=== PATIENT | male | born 1960 | race Caucasian/White ===

== ENCOUNTER 2021-09-25 14:44 | Emergency (ER) | payer BC, SELFPAY ==
--- NOTE | ~2021-09-25 | CT_ITS ---
EXAMINATION: CT soft tissue neck w con DATE: 09/25/2021 16:26 INDICATION: TECHNIQUE: Computed tomography (CT) of the neck was performed with 75 mL Omnipaque-300 intravenous co ntrast. Automated exposure control and iterative reconstruction technique were employed. The dose-vic gth product was 709.01 mGy-cm. COMPARISON: None FINDINGS: The thyroid gland is unremarkable. The submandibular and parotid glands are symmetric. There is n o cervical lymphadenopathy. There are no masses identified. The superior mediastinum is unremarka ble. The airway is unremarkable. Parapharyngeal and pre-glottic fat planes are preserved. Domin ant left vertebral artery. Hypoplastic/occluded intradural segment of the right distal vertebral pratibha ry. Bilateral lens replacements. Visualized sinuses and mastoid air cells are well aerated. Apica l pleural scarring. There is cervical spondylosis. IMPRESSION: 1. No acute process detected in the neck. Reviewed, dictated and finalized at location K.
[2021-09-25 14:54] VITALS: BP 159/92; PULSE 106; RESP 18; TEMP 36.8; O2SAT 97
[2021-09-25 15:23] VITALS: BP 143/95; PULSE 93; RESP 17; O2SAT 97
[2021-09-25 15:40] LABS: Basophils Percent Auto 0.5 % (0.2-1.2); Eosinophils Absolute Auto 0.2 K/mm3 (0-0.3); Eosinophils Percent Auto 2.3 % (0-4.4); Hematocrit 42.3 % (42.0-52.0); Hemoglobin 13.8 g/dL (14.0-18.0); Immature Granulocyte Absolute 0.02 K/mm3 (0.00-0.031); Immature Granulocyte Percent A 0.3 % (0-0.5); Lymphocytes Percent Auto 20.8 % (18.3-44.2); Mean Corpuscular HGB Conc 32.6 g/dl (32-36); Mean Corpuscular Hemoglobin 31.7 pg (26-34); Mean Platelet Volume 8.9 fl (7.4-10.4); Monocytes Percent Auto 12.8 % (2.6-8.5); Neutrophils Absolute Auto 4.9 K/mm3 (1.3-6.7); Neutrophils Percent Auto 63.3 % (45.5-73.1); Platelet Count Result 218 k/mm3 (150-375); Red Blood Count 4.36 M/mm3 (4.6-6.20); Red Cell Distribution Width 12.7 % (11.5-14.5); White Blood Count 7.7 K/mm3 (4.5-10.0)
[2021-09-25 15:54] LABS: Anion Gap 6 mmol/L (8-16); Blood Urea Nitrogen 22 mg/dL (9-20); Calcium 8.6 mg/dL (8.4-10.2); Carbon Dioxide 27 mmol/L (22-30); Chloride 105 mmol/L (98-107); Estimated CRCL calculation 105 ml/min; Estimated Glomerular Filt Rate > 60; Glucose 92 mg/dL (65-110); Potassium 4.6 mmol/L (3.4-5.0); Sodium 138 mmol/L (137-145)
--- NOTE | 2021-09-25 16:11 | ED.GENADULT ---
HPI - General Adult General Chief complaint: Neck Pain/Injury Stated complaint: R sided numbness to neck x2 weeks Time Seen by Provider: 09/25/21 15:21 History of Present Illness HPI narrative: Patient is a 60 year-old male who presents to the ER with numbness to the right neck. Ongoing over the last 2 weeks. No known trauma. No pain in the neck. Started noticing some mild discomfort last couple days in the anterior right-sided neck and feels like there may be some swelling as well. No difficulty breathing or swallowing. No fevers or chills or sweats. No dizziness. Patient was unable to palpate any lymphadenopathy. Patient has history of cervical fusion. Denies extremity numbness or tingling or weakness. Related Data Home Medications Medication Instructions Recorded Confirmed atorvastatin 10 mg PO DAILY 09/25/21 lisinopril 5 mg PO DAILY 09/25/21 Allergies Allergy/AdvReac Type Severity Reaction Status Date / Time No Known Allergies Allergy Verified 09/25/21 15:20 Review of Systems Review of Systems: All systems reviewed & are unremarkable except as noted in HPI and below Constitutional: Constitutional: Denies chills, Denies fever(s) and Denies weakness ENT: Denies dysphagia Respiratory: Respiratory: Denies dyspnea Neurologic: Denies focal weakness and Reports numbness PMFSH Past Medical History Medical History (Updated 09/25/21 @ 16:51 by Lino Richards MD) BMI 32.0-32.9,adult BPH (benign prostatic hyperplasia) Dermatitis Elevated lipids Exposure to COVID-19 virus Surgical History Surgical History (Updated 09/25/21 @ 16:13 by Lino Richards MD) History of fusion of cervical spine Family History Family History Father Hypertension Mother Patient's mother is in good health Other Cerebrovascular accident Social History Social History Smoking status: Never smoker Second hand tobacco smoke exposure: No Alcohol intake: current Exam Narrative: GENERAL: Well-appearing, well-nourished, and in no acute distress. HEAD: Normocephalic, atraumatic. ENT: Mucous membranes moist. Normal-appearing posterior oropharynx. TMs normal bilaterally. NECK: Supple. Lymphadenopathy. No palpable bruit. Symmetric in appearance. CHEST: Clear to auscultation. No respiratory distress. HEART: Regular rate and rhythm. Normal peripheral pulses. NEURO: Alert and oriented x3. PSYCH: Normal mood and affect. Course Course Emergency Course: Patient informed of results. He has been given a disc with a copy of his images. Declines Medrol Dosepak. Discharge home. Vital Signs Vital signs: Vital Signs Temperature 98.3 F 09/25/21 14:54 Pulse Rate 106 H 09/25/21 14:54 Respiratory Rate 18 09/25/21 14:54 Blood Pressure 159/92 H 09/25/21 14:54 Pulse Oximetry 97 09/25/21 14:54 Temperature 98.3 F 09/25/21 14:54 Pulse Rate 94 09/25/21 16:48 Respiratory Rate 20 09/25/21 16:48 Blood Pressure 141/91 H 09/25/21 16:48 Pulse Oximetry 96 09/25/21 16:48 Medical Decision Making Vital Signs Vital Signs: Vital Signs Temperature 98.3 F 09/25/21 14:54 Pulse Rate 106 H 09/25/21 14:54 Respiratory Rate 18 09/25/21 14:54 Blood Pressure 159/92 H 09/25/21 14:54 Pulse Oximetry 97 09/25/21 14:54 Temperature 98.3 F 09/25/21 14:54 Pulse Rate 94 09/25/21 16:48 Respiratory Rate 20 09/25/21 16:48 Blood Pressure 141/91 H 09/25/21 16:48 Pulse Oximetry 96 09/25/21 16:48 Lab Data Result diagrams: 09/25/21 15:36 09/25/21 15:36 Labs: Lab Results 09/25/21 09/25/21 Range/Units 15:36 15:36 WBC 7.7 (4.5-10.0) K/mm3 RBC 4.36 L (4.6-6.20) M/mm3 Hgb 13.8 L (14.0-18.0) g/dL Hct 42.3 (42.0-52.0) % MCV 97.0 (80-100) fl MCH 31.7 (26-34) pg MCHC 32.6 (32-36) g/dl RDW 12.7 (11.5-1
[2021-09-25 16:48] VITALS: BP 141/91; PULSE 94; RESP 20; O2SAT 96
== END 2021-09-25 17:15 | disposition home or self-care (01) ==
PROVIDERS: Emergency Provider Emergency Medicine; PCP Family Medicine
DX: M54.12 Radiculopathy, cervical region (principal); N40.0 Benign prostatic hyperplasia without lower urinary tract symptoms; Z98.1 Arthrodesis status
CPT/HCPCS: 36415; 70491; 80048; 85025; 99284; Q9967

== ENCOUNTER 2024-02-12 08:25 | Outpatient (CLI) | payer BC, SELFPAY | END 2024-02-12 08:26 | disposition home or self-care (01) | PROVIDERS: PCP Family Medicine; Visit Provider Family Medicine | DX: H93.19 Tinnitus, unspecified ear (principal); H91.90 Unspecified hearing loss, unspecified ear | CPT/HCPCS: 92557; 92567 ==

== ENCOUNTER 2024-02-13 09:36 | Outpatient (CLI) | payer BC, SELFPAY ==
--- NOTE | 2024-02-13 09:42 | EST_ITS ---
Patient Info Name: Sal Craig Age: 63 years : 1960 Gender: Male Ht: 75 in Wt: 255 lbs BSA: 2.50 m2 HR: 96 bpm BP: 159 / 83 mmHg Exam Date: 02/13/2024 10:02 AM Exam Location: [facility] Lab Patient Status: Outpatient Admit Date: 02/13/2024 Staff Ordering Physician: Holger Carvajal MD Attending Provider: Holger Carvajal MD Exercise Technologist: Letty Karimi [facility] Exercise Physician: Sandor Morales DO Exam Type: CA stress test treadmill Study Info A treadmill exercise stress test was performed. Summary 1. 1. Negative Manjit exercise stress test for ischemic ST changes by ECG criteria. 2. 2. Reduced functional capacity, achieving 8 METs of workload, limited by reaching maximum heart rate. 3. 3. Baseline hypertension. 4. 4. Appropriate HR response to exercise. 5. 5. Appropriate HR recovery at 1 minute post exercise. 6. 6. No imaging with stress testing. 7. 7. Patient informed of the above results. Protocol: Manjit Stress ECG Details Stage: REST Duration (min): 1 min : 59 sec Speed (mph): 0.0 Grade (%): 0 HR (bpm): 96 SBP (mmHg): 159 DBP (mmHg): 83 METS: --- Stage: REST Duration (min): 5 min : 42 sec Speed (mph): 0.0 Grade (%): 0 HR (bpm): 103 SBP (mmHg): 159 DBP (mmHg): 83 METS: --- Stage: STAGE 1 Duration (min): 1 min : 0 sec Speed (mph): 1.7 Grade (%): 10 HR (bpm): 116 SBP (mmHg): 159 DBP (mmHg): 83 METS: --- Stage: STAGE 1 Duration (min): 2 min : 0 sec Speed (mph): 1.7 Grade (%): 10 HR (bpm): 128 SBP (mmHg): 159 DBP (mmHg): 83 METS: --- Stage: STAGE 1 Duration (min): 3 min : 0 sec Speed (mph): 1.7 Grade (%): 10 HR (bpm): 132 SBP (mmHg): 181 DBP (mmHg): 80 METS: --- Stage: STAGE 2 Duration (min): 1 min : 0 sec Speed (mph): 2.5 Grade (%): 12 HR (bpm): 142 SBP (mmHg): 181 DBP (mmHg): 80 METS: --- Stage: STAGE 2 Duration (min): 2 min : 0 sec Speed (mph): 2.5 Grade (%): 12 HR (bpm): 149 SBP (mmHg): 197 DBP (mmHg): 80 METS: --- Stage: STAGE 2 Duration (min): 3 min : 0 sec Speed (mph): 2.5 Grade (%): 12 HR (bpm): 153 SBP (mmHg): 197 DBP (mmHg): 80 METS: --- Stage: STAGE 3 Duration (min): 0 min : 44 sec Speed (mph): 3.4 Grade (%): 14 HR (bpm): 156 SBP (mmHg): 197 DBP (mmHg): 80 METS: --- Stage: RECOVERY Duration (min): 0 min : 15 sec Speed (mph): 1.5 Grade (%): 0 HR (bpm): 158 SBP (mmHg): 171 DBP (mmHg): 76 METS: --- Stage: RECOVERY Duration (min): 1 min : 15 sec Speed (mph): 0.0 Grade (%): 0 HR (bpm): 135 SBP (mmHg): 171 DBP (mmHg): 76 METS: --- Stage: RECOVERY Duration (min): 2 min : 15 sec Speed (mph): 0.0 Grade (%): 0 HR (bpm): 116 SBP (mmHg): 171 DBP (mmHg): 76 METS: --- Stage: RECOVERY Duration (min): 3 min : 15 sec Speed (mph): 0.0 Grade (%): 0 HR (bpm): 110 SBP (mmHg): 207 DBP (mmHg):
== END 2024-02-13 09:37 | disposition home or self-care (01) ==
LOC: ANHCARD 09:38
PROVIDERS: PCP Family Medicine; Visit Provider Family Medicine
DX: R00.0 Tachycardia, unspecified (principal)
CPT/HCPCS: 93017

== ENCOUNTER 2024-07-21 00:06 | Day surgery (SDC) | payer BC, SELFPAY ==
[2024-07-14 08:41] VITALS: BMI 31.3
--- OUTSIDE RECORDS SUMMARY | 2024-07-21 00:10 | XMS_ITS | Continuity of Care Document ---
Author Organization [facility] Address [address] [place] [address] Phone Care Team Providers Care Roll Cleaner Name Role Phone Jonn PT,MPT,ATC, Tyler Unavailable Unavai lable Procedures Procedure Date Progress Note Neuromuscular Re-Ed Therapeutic Activities Manual Therapy Therapeutic Activities Neuromuscular Re-Ed Manual Therapy Neuromuscular Re-Ed Therapeutic Activities Manual Therapy Therapeutic Activities Neuromuscular Re-Ed Manual Therapy Therapeutic Exercise Neuromuscular Re-Ed Therapeutic Activities PT Evaluation Moderate Complexity Manual Therapy Advance Directives Directive Yes / No Effective Date File Name No Information Encounters Encounter Description Practice Location Reason(s) For Visit Diagnoses Date Provider Providers Copied on Encounter [facility], [place], [place], [id number], tel:[phone] [place] No Information 1 Jonn Driscoll [place], [place]. [facility], [place], [place], [id number], tel:[phone] [place] No Information 1 NICK Guy, [place]. [facility], [address], [place], [place], [id number], tel:[phone] [place] No Information 1 NICK Guy, . [facility], [address], [place], [place], [id number], tel:[phone] [place] No Information 1 NICK Guy, . [facility], [address], [place], [place], [id number], tel:[phone] [place] No Information 1 Jonn Driscoll [place], . Family History Family Member Type Diagnosis Age At Onset No Information Payers Payer name Insurance type Covered alliance party ID Authoreankaron clark(s) [facility] [id number] Social History Type Description Quantity Date Captured Comments Sex Male Smoking Status No Information Chief Complaint And Reason For Visit No Information Reason For Referral Reason For Referral No Information History Of Present Illness Encounter Date Complaint History Of Prese nt Illness No Information Functional Status Date Functional Assessmen t No Information Instructions Date Instruction Additional Infor jose Giving encouragement to exercise Related to Overweight Giving encouragement to exercise Related to Overweight Assessments Type Assessment Date No Information Patient Care Teams Name Effective Dates (start - stop) Status Members No Information
--- OUTSIDE RECORDS SUMMARY | 2024-07-21 00:10 | XMS_ITS | Continuity of Care Document ---
Author Organization [facility] Address [address] [place] [address] Phone Care Team Providers Care Gizzard Puller Name Role Phone Johnson OD, Saad Unavailable Unavailable Advance Directives Directive Yes / No Effective Date File Name No Information Encounters Encounter Description Practice Location Reason(s) For Visit Diagnoses Date Provider Providers Copied on Encounter [facility], [address], [place], [place], [id number], [place] tel:[phone] [facility] No Information 4-200 0 Johnson OD Saad. [address], [place], [address], [place]. tel:[phone] Family History Family Member Type Diagnosis Age At Onset No Information Payers Payer name Insurance type Covered alliance party ID Authoriza tion(s) No Information Social History Type Description Quantity Date Captured Comments Sex Male Smoking Status No Information Chief Complaint And Reason For Visit No Information Reason For Referral Reason For Referral No Information History Of Present Illness Encounter Date Complaint History Of Prese nt Illness No Information Functional Status Date Functional Assessmen t No Information Instructions Date Instruction Additional Infor mation No Information Assessments Type Assessment Date No Information Patient Care Teams Name Effective Dates (start - stop) Status Members No Information
--- OUTSIDE RECORDS SUMMARY | 2024-07-21 00:10 | XMS_ITS | Clinical Summary ---
Author Organization [facility] Address [address] [place] [address] Care Team Providers Care Wool Shearing Supervisor Name Role Phone Ivone Ospina NP Primary Care Provider [phone] Holger Carvajal MD Unavailable [phone] Allergies No known active allergies Medications atorvastatin 20 MG tablet Take 20 mg by mouth daily. 0 Active lisinopril 10 MG tablet Take 10 mg by mouth daily. 0 Active aspirin EC 81 MG tablet Take 81 mg by mouth daily. Active tadalafil 5 MG tablet Take 5 mg by mouth daily as needed for Erectile Dysfunction. Active clobetasol 0.05 % cream Apply 1 Application topically 2 (two) times daily. 0 Active Clarithromycin (BIAXIN OR) Take 1 tablet by mouth 3 (three) times daily as needed. Active HYDROcodone-sharri taminophen 5-325 MG tabletIndicatio ns:Acute Pain < 7 Day Supply Take 1 tablet by mouth every 6 (six) hours as needed for Pain. Indications: Acute Pain < 7 Day Supply 20 tablet 0 Active Active Problems Problem Noted Date Diagnosed Date Rupture of left distal biceps tendon, initial en counter 03/15/2020 Family History Medical History Relation Comments Sudden Brother Autoimmune Disease Father Kidney Disease Father sepsis Father COPD Mother No Known Problems Sister 1 No Known Problems Sister 2 Relation Status Comments Brother Father Mother Sister 1 Alive Sister 2 Alive Social History Tobacco Use Types Packs/Day Years Used Date Smoking Tobacco: Never Smokeless Tobacco: Never Alcohol Use Standard Drinks/Week Comments Yes 0 (1 standard drink = 0.6 oz pur e alcohol) weekly Sex and Gender Information Value Date Recorded Sex Assigned at Not on file Legal Sex Male 5:43 PM CONTACT WORKER Gender Identity Not on file Sexual Orientation Not on file Last Filed Vital Signs Vital Sign Reading Time Taken Comments Blood Pressure 135/79 03/18/2020 10:00 AM CONTACT WORKER Pulse 69 03/18/2020 10:00 AM CONTACT WORKER Temperature 36.1 C (96.9 F) 03/18/2020 10:00 AM CONTACT WORKER Respiratory Rate 16 03/18/2020 10:00 AM CONTACT WORKER Oxygen Saturation 95% 03/18/2020 9:45 AM CONTACT WORKER Inhaled Oxygen Concentration - - Weight 113.4 kg (250 lb) 06/03/2020 4:35 PM CONTACT WORKER Height 190.5 cm (6' 3 ) 06/03/2020 4:35 PM CONTACT WORKER Body Mass Index 31.25 06/03/2020 4:35 PM CONTACT WORKER Plan of Treatment Health Maintenance Due Date Last Done Comments Colorectal Cancer Screening Colonoscopy (10 Years) 1960 Annual Physical 10/16/1963 Hepatitis C 1978 DTaP, Tdap and Td Vaccines ( 1 - Tdap) 10/16/1979 Zoster Vaccines (1 of 2) 2010 COVID-19 Vaccine ( - 2023-2 5 season) 2024 Influenza Adult (#1) 2024 RSV Immunization or 60+ Years (1 - 1-dose 75+ series) 10/16/2035 Meningococcal B Vaccine Aged Out No l onger eligible based on patient's age to complete this topic Meningococcal Vaccine Aged Out No derian domingo eligible based on patient's age to complete this topic Pneumococcal Vaccine: Pediat rics (0 to 5 Years) and At-Risk Patients (6 to 64 Years) Aged Out No longer eligible b ased on patient's age to complete this topic RSV Immunizations Under 20 Months Aged Out No longer eligible based on patient's age to complete this topic Medical Devices Implanted Type Area Nurse Sane Device Identifier Shelf Expiration Date Model / Serial / Lot Implant Delivery System, Biocomposite Distal Biceps Repair Implanted:Qty: 1 on 03/18/2020 by Noah Danielson MD at [facility] Left: Arm 11/10/2021 [id number] / / [id number] Insurance [facility] Care Teams Wool Shearing Supervisor Relationship Specialty Start Date End Date Ivone Ospina AMORTIZATION CLERK [address] [place] [address] PCP - General NURSE PRACTITIONER 11/29/18 Holger Carvajal MD [address] [address] FAMILY PRACTICE 12/05/19
[2024-07-21 08:40] VITALS: BP 136/95; PULSE 96; RESP 16; TEMP 36.4; O2SAT 97
[2024-07-21] MEDS: LACTATED RINGERS 1,000 ML 150 ML IV CONT (08:49)
--- NOTE | 2024-07-21 09:03 | WPDANESEPPF ---
Anes - Initial Pre Proc Eval Procedure: Operation Date: 07/21/24 09:30 Proposed Procedures p Colonoscopy - Waldemar Kaminski MD Date/Time: 07/21/24 09:03 Surgeon: Waldemar Kaminski MD Pre Op Diagnosis: Personal Hx colon polyps Patient Data Age: 63 Gender: M Height: 1.91 m Weight: 114.5 kg Last Vital Signs Temp 36.4 C 07/21/24 08:40 Pulse 96 07/21/24 08:40 Resp 16 07/21/24 08:40 BP 136/95 H 07/21/24 08:40 Pulse Ox 97 07/21/24 08:40 O2 Del Method Room Air 07/21/24 08:40 Allergies Allergy/AdvReac Type Severity Reaction Status Date / Time No Known Allergies Allergy Verified 07/21/24 08:38 Home Medications ?Medication ?Instructions ?Recorded ?Confirmed ?Type aspirin 81 mg tablet,delayed 81 mg PO DAILY 03/20/22 07/21/24 History release (Adult Aspirin Regimen) dupilumab 300 mg/2 mL subcutaneous 300 mg subcut .COMPLEX 11/17/22 07/21/24 History syringe atorvastatin 10 mg tablet See Rx Instructions .Route 02/22/24 07/21/24 Rx .COMPLEX #90 tabs tadalafil 2.5 mg tablet 2.5 mg PO DAILY #90 tabs 05/02/24 07/14/24 Rx lisinopril 10 mg tablet See Rx Instructions .Route 05/22/24 07/21/24 Rx .COMPLEX #90 tabs Patient hx anesthesia problems: none Family hx anesthesia problems: none Results Review: All pre-operative results and documents have been reviewed as part of the pre-operative evaluation. [facility] Past Medical History Medical History Tachycardia Autoimmune dermatitis BMI 31.0-31.9,adult Exposure to COVID-19 virus BMI 32.0-32.9,adult Elevated lipids BPH (benign prostatic hyperplasia) Dermatitis Surgical History Surgical History History of fusion of cervical spine Family History Family History Father Hypertension Mother Patient's mother is in good health Other Cerebrovascular accident Social History Social History Smoking status: Never smoker Second hand tobacco smoke exposure: No Alcohol intake: current Drinks per week: 8 Living arrangements: with family Additional living arrangements comments: with Spiritual care concerns: No Anes - Eval Final PreProcedure Day of Procedure 07/21/24 09:03 Patient weight: obese Heart: regular rate and rhythm Lungs: clear to auscultation Airway: Mallampati scale class II Neurological: alert and oriented Last oral intake: >/= 8 hours ASA classification: III Emergent: no Anesthetic plan: proceed Anesthesia type and monitoring: general GIVS and standard monitoring Results Review: All pre-operative results and documents have been reviewed as part of the pre-operative evaluation. Informed Consent: The patient's anesthetic plan and its attendant risks and benefits were discussed with the patient/family/POA. Questions were solicited and answers provided to the satisfaction of the patient/family/POA.
--- NOTE | 2024-07-21 09:20 | PM.HPGS ---
History of Present Illness History of Present Illness Consent: Risks, benefits, and alternatives have been discussed and questions answered. Patient agrees to proceed with procedure. Chief complaint: Personal Hx colon polyps Narrative: Sal Craig is a 63 year old male with colon polyp 5-6 years ago Review of Systems Review of Systems: All systems reviewed & are unremarkable except as noted in HPI and below PMFSH Past Medical History Medical History (Updated 07/21/24 @ 09:20 by Waldemar Kaminski MD) Adenomatous colon polyp Tachycardia Autoimmune dermatitis BMI 31.0-31.9,adult Exposure to COVID-19 virus BMI 32.0-32.9,adult Elevated lipids BPH (benign prostatic hyperplasia) Dermatitis Surgical History Surgical History History of fusion of cervical spine Family History Family History Father Hypertension Mother Patient's mother is in good health Other Cerebrovascular accident Social History Social History Smoking status: Never smoker Second hand tobacco smoke exposure: No Alcohol intake: current Drinks per week: 8 Living arrangements: with family Additional living arrangements comments: with Spiritual care concerns: No Meds Home Medications and Allergies Home Medications ?Medication ?Instructions ?Recorded ?Confirmed ?Type aspirin 81 mg tablet,delayed 81 mg PO DAILY 03/20/22 07/21/24 History release (Adult Aspirin Regimen) dupilumab 300 mg/2 mL subcutaneous 300 mg subcut .COMPLEX 11/17/22 07/21/24 History syringe atorvastatin 10 mg tablet See Rx Instructions .Route 02/22/24 07/21/24 Rx .COMPLEX #90 tabs tadalafil 2.5 mg tablet 2.5 mg PO DAILY #90 tabs 05/02/24 07/14/24 Rx lisinopril 10 mg tablet See Rx Instructions .Route 05/22/24 07/21/24 Rx .COMPLEX #90 tabs Allergies Allergy/AdvReac Type Severity Reaction Status Date / Time No Known Allergies Allergy Verified 07/21/24 08:38 Vital Signs Vital Signs - 24 hr 07/21/24 08:40 Temperature 97.6 F Pulse Rate 96 Respiratory Rate 16 Blood Pressure 136/95 H Pulse Oximetry 97 Oxygen Delivery Room Air Exam Const: General: comfortable and no acute distress HENMT: Face/Nose/Sinus: Normal nares present Eyes: General: appearance normal, both eyes and all related structures Neck: Neck: no JVD Resp: Auscultation: clear to auscultation bilaterally Cardio: Rate: regular rate Rhythm: regular rhythm GI: Inspection: non-distended GI Palp: Yes Soft to palpation Skin: General skin exam: normal color Neuro: General: gait normal Speech: normal speech Extrem: General: normal to inspection Psych: Mental Status: mental status grossly normal Assessment and Plan Assessment and plan (1) Adenomatous colon polyp: Code(s): D12.6 - Benign neoplasm of colon, unspecified Status: Acute Assessment and Plan: colonoscopy
[2024-07-21 09:39] VITALS: BP 109/66; PULSE 84; RESP 15; O2SAT 96
[2024-07-21 09:49] VITALS: BP 107/71; PULSE 94; RESP 20; O2SAT 97
[2024-07-21 09:59] VITALS: BP 116/76; PULSE 89; RESP 20; O2SAT 100
== END 2024-07-21 10:10 | disposition home or self-care (01) ==
PROVIDERS: PCP Family Medicine; Referring Provider Family Medicine; Visit Provider Internal Medicine Gastroenterology
PROC: 0DJD8ZZ Inspection of Lower Intestinal Tract, Via Natural or Artificial Opening Endoscopic (ICD-10-PCS; CPT 45378; principal; 2024-07-21 09:30)
DX: Z12.11 Encounter for screening for malignant neoplasm of colon (principal); K63.5 Polyp of colon; K57.30 Diverticulosis of large intestine without perforation or abscess without bleeding; K64.8 Other hemorrhoids; E66.9 Obesity, unspecified; Z68.31 Body mass index [BMI] 31.0-31.9, adult
CPT/HCPCS: 45385; 88305; J2004; J2704; J7120